=== PATIENT | female | born 1965 | race African-American/Black ===

== ENCOUNTER 2018-02-07 16:50 | Emergency (ER) | payer OTHER ==
[~2018-02-07] VITALS: Ht 167.6 cm; Wt 90.7 kg
[~2018-02-07 16:50] MED LIST: AMITIZA 24 MCG24 MC1 PO; CELEXA20 MG PO; COZAAR 50 MG TA50 M2 PO; HUMALOG100 UNIT/1 SUBQ; JANUVIA100 MG PO; LANTUS100 UNIT/M SUBQ; LISINOPRIL10 MG PO; LOPRESSOR25 PO; NOVOLOG FL100 UNIT/M SC; TRESIBA FL200 UNIT/1 SQ; TRULICITY0.75 MG/0. SQ; WELLBUTRIN XL150 MG PO
[2018-02-07] MEDS ORDERED: HYDROCODONE-AP1 EAC6 PO (18:56)
[2018-02-07] MEDS ORDERED: LIORESAL 10 MG10 MG PO (18:56)
[2018-02-07 19:27] VITALS: BP 132/74
== END 2018-02-07 19:28 | disposition home or self-care (01) ==
LOC: ER 16:50
DX: S16.1XXA Strain of muscle, fascia and tendon at neck level, initial encounter (principal); S90.31XA Contusion of right foot, initial encounter; M54.5 Low back pain; E11.9 Type 2 diabetes mellitus without complications; I10 Essential (primary) hypertension; F32.9 Major depressive disorder, single episode, unspecified; F41.9 Anxiety disorder, unspecified; Z88.0 Allergy status to penicillin; Z88.8 Allergy status to other drugs, medicaments and biological substances; W10.8XXA Fall (on) (from) other stairs and steps, initial encounter; Y93.89 Activity, other specified; Y92.89 Other specified places as the place of occurrence of the external cause; Y99.8 Other external cause status

== ENCOUNTER 2018-02-12 18:46 | Emergency (ER) | payer OTHER ==
[~2018-02-12] VITALS: Ht 167.6 cm; Wt 81.7 kg
--- NOTE | ~2018-02-12 | EKG ---
[place] [address] [email or web address] [place] [address] ELECTROCARDIOGRAM REPORT Name: NOHEMY CURRY [id number] Admission: 02/12/18 Attend Phys: Discharge: 02/12/18 Date of : 63 Report #: [id number] THIS REPORT FOR: //name// [facility] ED Test Date: 2018-02-12 Test Time: 18:54:10 Pat Name: NOHEMY CURRY Department: Room: Gender: F Senior Advocate: LUANNMARY : 1965 Requested By: Gaby Denise Order Number: [id number] MD: Pieter Cooley Measurements Intervals [place] Rate: 120 P: 63 NC: 158 QRS: 85 QRSD: 75 T: 17 QT: 296 QTc: 419 Interpretive Statements Sinus tachycardia Otherwise no significant abnormality Compared to ECG 07/16/2015 18:13:04 Sinus rhythm no longer present Electronically Signed On 02-14-2018 13:38:33 CDT by Pieter Cooley [email or web address] <ELECTRONICALLY SIGNED> By: Pieter Cooley MD, [facility] 02/14/18 1338 1854 185 Pieter Cooley MD, FACC /EPI
[~2018-02-12 18:46] MED LIST changes: +HYDROCODONE-AP1 EAC6 PO; +LIORESAL 10 MG10 MG PO
[2018-02-12 20:06] LABS: ABSOLUTE NEUTROPHILS 10.7 thou/uL (1.4-8.2); BASOPHILS 0.5 % (0.0-2.0); EOSINOPHILS 0.5 % (0.0-3.0); HEMATOCRIT 31.2 % (37.0-47.0); HEMOGLOBIN 10.1 gm/dL (12.0-15.0); LYMPHOCYTES 10.5 % (24.0-44.0); MCH 26.6 pg (26.0-34.0); MCHC 32.5 g/dL (28.0-37.0); MCV 81.8 fL (80.0-100.0); MONOCYTES 11.1 % (1.0-8.0); PLATELET COUNT 488 thou/uL (150-400); POLYS 77.4 % (36.0-66.0); RBC 3.81 mil/uL (4.20-5.00); RDW 13.3 % (10.5-14.5); WBC 13.9 thou/uL (4.0-11.0)
[2018-02-12 20:13] LABS: CALCIUM 8.9 mg/dL (8.5-10.1); POTASSIUM 3.4 mmol/L (3.5-5.1)
[2018-02-12 21:53] LABS: URINE BILIRUBIN NEGATIVE (Negative); URINE BLOOD NEGATIVE (Negative); URINE CLARITY CLEAR; URINE COLOR YELLOW; URINE GLUCOSE-RANDOM* 3+ (Negative); URINE KETONES NEGATIVE (Negative); URINE LEUKOCYTES-REFLEX NEGATIVE (Negative); URINE NITRITE-REFLEX NEGATIVE (Negative); URINE PROTEIN (DIPSTICK) TRACE (Negative)
[2018-02-12] MEDS ORDERED: NAPROSYN500 MG PO (22:39)
[2018-02-12 23:24] VITALS: BP 124/63
== END 2018-02-12 23:18 | disposition home or self-care (01) ==
LOC: ER 18:46
PROVIDERS: Emergency Medicine
DX: R50.9 Fever, unspecified (principal); E11.9 Type 2 diabetes mellitus without complications; I10 Essential (primary) hypertension; F41.9 Anxiety disorder, unspecified; F32.9 Major depressive disorder, single episode, unspecified; Z79.4 Long term (current) use of insulin; Z88.0 Allergy status to penicillin; Z88.8 Allergy status to other drugs, medicaments and biological substances

== ENCOUNTER 2019-12-26 06:57 | Emergency (ER) | payer OTHER ==
[~2019-12-26] VITALS: Ht 157.5 cm; Wt 81.7 kg
[~2019-12-26 06:57] MED LIST changes: +NAPROSYN500 MG PO
[2019-12-26] MEDS ORDERED: NORVASC 2.5 MG2.5 M1 PO (07:06)
[2019-12-26] MEDS ORDERED: CARVEDILOL12.5 MG PO (07:07)
[2019-12-26] MEDS ORDERED: HYDROCHLOROTHIA25 M2 PO (07:07)
[2019-12-26] MEDS ORDERED: DIAZEPAM 2MG TAB2 MG PO (07:08)
[2019-12-26] MEDS ORDERED: METFORMIN HCL500 M3 PO (07:08)
[2019-12-26] MEDS ORDERED: LEVEMIR FL100 UNIT/2 SUBQ (07:09)
--- NOTE | 2019-12-26 08:08 | EKG ---
[place] [address] [place] [address] ELECTROCARDIOGRAM REPORT Name: NOHEMY CURRY [facility] [id number] Admission: 12/26/19 Attend Phys: Discharge: Date of : 63 Report #: [id number] THIS REPORT FOR: //name// [facility] ED Test Date: 2019-12-26 Test Time: 07:11:44 Pat Name: NOHEMY CURRY Department: Room: Gender: F Candy Counter Clerk: ADITHYA : 1965 Requested By: Faustino Toledo Order Number: [id number] MD: Pieter Cooley Measurements Intervals [place] Rate: 78 P: 69 [place]: 168 QRS: 74 QRSD: 76 T: 42 QT: 386 QTc: 440 Interpretive Statements Sinus rhythm Normal tracing Compared to ECG 02/12/2018 18:54:10 Sinus tachycardia no longer present Electronically Signed On 12-26-2019 8:07:50 EXPORT PACKER by Pieter Cooley [email or web address] <ELECTRONICALLY SIGNED> By: Pieter Cooley MD, [facility] 12/26/19 0807 0711 0711 Pieter Cooley MD, FACC /EPI
[2019-12-26 08:24] LABS: URINE BILIRUBIN NEGATIVE (Negative); URINE BLOOD NEGATIVE (Negative); URINE CLARITY CLEAR; URINE COLOR YELLOW; URINE GLUCOSE-RANDOM* 3+ (Negative); URINE KETONES NEGATIVE (Negative); URINE LEUKOCYTES-REFLEX NEGATIVE (Negative); URINE NITRITE-REFLEX NEGATIVE (Negative); URINE PROTEIN (DIPSTICK) NEGATIVE (Negative); URINE UROBILINOGEN 0.2 E.U./dl (0.2-1.0)
[2019-12-26 08:31] LABS: AMP/METHAMP Negative (Negative); BARBITURATES Negative (Negative); BENZODIAZEPINES POSITIVE (Negative); COCAINE Negative (Negative); METHADONE Negative (Negative); OPIATES Negative (Negative); PCP Negative (Negative)
[2019-12-26 09:45] LABS: ABSOLUTE NEUTROPHILS 4.3 thou/uL (1.4-8.2); EOSINOPHILS 2.7 % (0.0-3.0); HEMATOCRIT 36.4 % (37.0-47.0); HEMOGLOBIN 11.4 gm/dL (12.0-15.0); LYMPHOCYTES 30.4 % (24.0-44.0); MCH 27.2 pg (26.0-34.0); MCHC 31.5 g/dL (28.0-37.0); MCV 86.2 fL (80.0-100.0); MONOCYTES 7.5 % (1.0-8.0); PLATELET COUNT 370 thou/uL (150-400); POLYS 58.4 % (36.0-66.0); RBC 4.22 mil/uL (4.20-5.00); RDW 13.2 % (10.5-14.5); WBC 7.4 thou/uL (4.0-11.0)
[2019-12-26 09:56] LABS: ANION GAP 5 mmol/L (7-16); BUN 13 mg/dL (7-18); CHLORIDE 101 mmol/L (98-107); CO2 29 mmol/L (21-32); CREATININE 0.9 mg/dL (0.6-1.0); GLUCOSE 273 mg/dL (74-106); SODIUM 135 mmol/L (136-145)
[2019-12-26 09:59] LABS: APTT 25.3 Seconds (24.5-32.8); PROTIME 9.3 Seconds (9.3-11.4)
[2019-12-26 10:02] LABS: POTASSIUM 3.8 mmol/L (3.5-5.1)
[2019-12-26 10:06] LABS: ALBUMIN 3.7 g/dL (3.4-5.0); MAGNESIUM 1.7 mg/dL (1.8-2.4); SGOT 17 U/L (15-37); SGPT 24 U/L (30-65); TOTAL BILIRUBIN 0.3 mg/dL (<0.1-1.0); TOTAL PROTEIN 7.8 g/dL (6.4-8.2); TROPONIN-I <0.06 ng/mL (<0.06)
[2019-12-26 10:20] VITALS: BP 122/64
== END 2019-12-26 10:21 | disposition home or self-care (01) ==
LOC: ER 06:57
PROVIDERS: Emergency Medicine
DX: R55 Syncope and collapse (principal); I10 Essential (primary) hypertension; E11.9 Type 2 diabetes mellitus without complications; D57.3 Sickle-cell trait; F32.9 Major depressive disorder, single episode, unspecified; F41.9 Anxiety disorder, unspecified; Z86.2 Personal history of diseases of the blood and blood-forming organs and certain disorders involving the immune mechanism; Z86.73 Personal history of transient ischemic attack (TIA), and cerebral infarction without residual deficits; Z88.0 Allergy status to penicillin; Z88.8 Allergy status to other drugs, medicaments and biological substances

== ENCOUNTER 2020-05-23 11:06 | Emergency (ER) | payer OTHER ==
[~2020-05-23] VITALS: Ht 157.5 cm; Wt 85.6 kg
[~2020-05-23 11:06] MED LIST changes: +CARVEDILOL12.5 MG PO; +DIAZEPAM 2MG TAB2 MG PO; +HYDROCHLOROTHIA25 M2 PO; +LEVEMIR FL100 UNIT/2 SUBQ; +METFORMIN HCL500 M3 PO; +NORVASC 2.5 MG2.5 M1 PO
[2020-05-23 11:54] LABS: ABSOLUTE NEUTROPHILS 5.9 thou/uL (1.4-8.2); BASOPHILS 0.4 % (0.0-2.0); EOSINOPHILS 5.9 % (0.0-3.0); HEMATOCRIT 37.1 % (37.0-47.0); HEMOGLOBIN 11.7 gm/dL (12.0-15.0); LYMPHOCYTES 33.6 % (24.0-44.0); MCH 27.2 pg (26.0-34.0); MCHC 31.5 g/dL (28.0-37.0); MCV 86.5 fL (80.0-100.0); MONOCYTES 7.8 % (1.0-8.0); PLATELET COUNT 417 thou/uL (150-400); POLYS 52.3 % (36.0-66.0); RBC 4.28 mil/uL (4.20-5.00); RDW 13.6 % (10.5-14.5); WBC 11.2 thou/uL (4.0-11.0)
[2020-05-23 12:06] LABS: APTT 27.1 Seconds (24.5-32.8)
[2020-05-23 12:13] LABS: ALBUMIN 3.6 g/dL (3.4-5.0); ANION GAP 11 mmol/L (7-16); BUN 10 mg/dL (7-18); CALCIUM 8.9 mg/dL (8.5-10.1); CHLORIDE 104 mmol/L (98-107); CO2 25 mmol/L (21-32); CREATININE 0.8 mg/dL (0.6-1.0); GLUCOSE 58 mg/dL (74-106); SGOT 13 U/L (15-37); SGPT 20 U/L (30-65); SODIUM 140 mmol/L (136-145); TOTAL BILIRUBIN 0.3 mg/dL (0.2-1.0); TOTAL PROTEIN 7.5 g/dL (6.4-8.2); TROPONIN-I <0.06 ng/mL (<0.06)
[2020-05-23 14:55] VITALS: BP 151/76
--- NOTE | 2020-05-23 15:47 | EKG ---
[facility] [place] [address] ELECTROCARDIOGRAM REPORT Name: NOHEMY CURRY Room #: [facility]#: [id number] Admission: 05/23/20 Attend Phys: Discharge: 05/23/20 Date of : 63 Report #: [id number] THIS REPORT FOR: cc: Robi Graff Sr, MD, Otis S Sr MD Couchonnal, Luis F. MD ~ THIS REPORT FOR: //name// [facility] ED Test Date: 2020-05-23 Test Time: 12:00:33 Pat Name: NOHEMY CURRY Department: Room: Gender: Occupational Health Nurse Supervisor: [facility] : 1965 Requested By: Hansel Lorenzo Order Number: [id number] MD: Je Day Measurements Intervals [place] Rate: 74 P: 105 [place]: 173 QRS: 78 QRSD: 79 T: 31 QT: 395 QTc: 439 Interpretive Statements Sinus rhythm Borderline T wave abnormalities Baseline wander in lead(s) I,II,aVR Compared to ECG 12/26/2019 07:11:44 T-wave abnormality now present Electronically Signed On 05-23-2020 15:46:34 CDT by Je Day [email or web address] <ELECTRONICALLY SIGNED> By: Je Day MD 05/23/20 1546 1200 1200 Je Day MD /EPI
== END 2020-05-23 14:57 | disposition home or self-care (01) ==
LOC: ER 11:06
PROVIDERS: Emergency Medicine
DX: E11.649 Type 2 diabetes mellitus with hypoglycemia without coma (principal); I10 Essential (primary) hypertension; Z79.4 Long term (current) use of insulin; Z79.899 Other long term (current) drug therapy; Z88.8 Allergy status to other drugs, medicaments and biological substances; Z88.0 Allergy status to penicillin